=== PATIENT | female | born 1970 | race Caucasian/White ===

== ENCOUNTER 2020-07-16 10:36 | Outpatient (REF) | payer OTHER, SELFPAY ==
[2020-07-16 13:00] LABS: Alanine Aminotransferase 17 U/L (0-31); Albumin Level 4.3 g/dL (3.5-5.0); Alkaline Phosphatase 55 U/L (39-117); Anion Gap 11 (12-20); Aspartate Amino Transferase 19 U/L (5-31); Bilirubin Total 0.8 mg/dL (0.0-1.0); Blood Urea Nitrogen 14 mg/dL (9-16); Calcium 9.6 mg/dL (8.4-10.2); Carbon Dioxide 30 mmol/L (22-29); Chloride 103 mmol/L (96-108); Cholesterol 179 mg/dL; Estimated Glomerular Filt Rate > 60; Glucose Fasting 98 mg/dL (60-99); HDL Cholesterol 38 mg/dL; LDL Cholesterol Calculated 118 mg/dl; Potassium 4.2 mmol/L (3.3-5.1); Sodium 140 mmol/L (135-145); Total Protein 7.6 g/dL (6.5-8.0); Triglycerides 117 mg/dL
[2020-07-20 21:27] LABS: Vitamin D 25-OH, D2 <4 ng/mL; Vitamin D 25-OH, D3 10 ng/mL; Vitamin D 25-OH, Total 10 ng/mL (30-100)
== END 2020-07-16 10:37 | disposition home or self-care (01) ==
LOC: HO.LAB 10:36
PROVIDERS: PCP Internal Medicine; Visit Provider Internal Medicine
DX: E55.9 Vitamin D deficiency, unspecified (principal); E78.5 Hyperlipidemia, unspecified; I10 Essential (primary) hypertension
CPT/HCPCS: 36415; 80053; 80061; 82306

== ENCOUNTER 2021-11-18 08:18 | Outpatient (REF) | payer OTHER, SELFPAY ==
[2021-11-18 10:05] LABS: Alanine Aminotransferase 12 U/L (0-31); Albumin Level 3.9 g/dL (3.5-5.0); Alkaline Phosphatase 60 U/L (39-117); Anion Gap 11 (12-20); Aspartate Amino Transferase 15 U/L (5-31); Bilirubin Total 0.9 mg/dL (0.0-1.0); Blood Urea Nitrogen 12 mg/dL (9-16); Carbon Dioxide 27 mmol/L (22-29); Chloride 104 mmol/L (96-108); Cholesterol 182 mg/dL; Estimated Glomerular Filt Rate > 60; Glucose Fasting 99 mg/dL (60-99); HDL Cholesterol 45 mg/dL; LDL Cholesterol Calculated 118 mg/dl; Sodium 138 mmol/L (135-145); Total Protein 6.9 g/dL (6.5-8.0); Triglycerides 99 mg/dL
[2021-11-23 09:02] LABS: Vitamin D 25-OH, D2 40 ng/mL; Vitamin D 25-OH, D3 <4 ng/mL; Vitamin D 25-OH, Total 40 ng/mL (30-100)
== END 2021-11-18 08:19 | disposition home or self-care (01) ==
LOC: HO.LAB 08:18
PROVIDERS: PCP Internal Medicine; Visit Provider Internal Medicine
DX: I10 Essential (primary) hypertension (principal); E78.5 Hyperlipidemia, unspecified; E55.9 Vitamin D deficiency, unspecified
CPT/HCPCS: 36415; 80053; 80061; 82306

== ENCOUNTER 2023-01-18 07:23 | Outpatient (REF) | payer OTHER, SELFPAY ==
[2023-01-18 08:33] LABS: Alanine Aminotransferase 47 U/L (0-31); Albumin Level 3.8 g/dL (3.5-5.0); Alkaline Phosphatase 58 U/L (39-117); Anion Gap 9 (12-20); Aspartate Amino Transferase 29 U/L (5-31); Bilirubin Total 0.9 mg/dL (0.0-1.0); Blood Urea Nitrogen 14 mg/dL (9-16); Calcium 9.6 mg/dL (8.4-10.2); Carbon Dioxide 29 mmol/L (22-29); Chloride 105 mmol/L (96-108); Cholesterol 185 mg/dL (<200); Estimated Glomerular Filt Rate > 60; Glucose Fasting 99 mg/dL (60-99); HDL Cholesterol 54 mg/dL (>40); LDL Cholesterol Calculated 109 mg/dL (<100); Potassium 3.7 mmol/L (3.3-5.1); Sodium 139 mmol/L (135-145); Total Protein 7.1 g/dL (6.5-8.0); Triglycerides 114 mg/dL (<150)
[2023-01-18 08:50] LABS: Vitamin D 25-OH Total 28.1 ng/mL (>30)
== END 2023-01-18 07:24 | disposition home or self-care (01) ==
LOC: HO.LAB 07:23
PROVIDERS: PCP Internal Medicine; Visit Provider Internal Medicine
DX: Z00.00 Encounter for general adult medical examination without abnormal findings (principal); E55.9 Vitamin D deficiency, unspecified; E78.5 Hyperlipidemia, unspecified
CPT/HCPCS: 36415; 80053; 80061; 82306

== ENCOUNTER 2023-01-24 07:57 | Outpatient (AMB) | payer OTHER, SELFPAY ==
--- NOTE | 2023-01-24 08:05 | A.OFFPC_ITS ---
Vital Signs 01/24/23 08:06 Height 5 ft 5 in Weight 212 lb BMI 35.3 BP 148/92 H Blood Pressure Location Lt brachial Position Sitting Intake Visit Reasons: bp Intake Note: Patient here for a follow up BP Legal Assistant Required: No Accompanied by: Self / Same As Patient Allergies No Known Allergies Allergy (Verified 01/24/23 08:10) Medication List - Last Reconciled 01/24/23 by Desiree Maxwell MD cholecalciferol (vitamin D3) 25 mcg PO DAILY 90 days lisinopril 5 mg PO DAILY triamterene-hydrochlorothiazid 37.5-25 mg 1 tab PO DAILY 90 days Tobacco use date assessed: 09/19/22 Dental Screening Dental Screen Date: 01/24/23 Did you have a dental visit in the last 12 months?: Yes Did you have a dental problem in the last 6 months where you did not have access to dental care?: No Was dental information given to patient?: Patient has dentist HPI HPI Comments History of Present Illness Details This is a 52 year female with hypertension and low vitamin-D that comes today for follow-up on blood pressure. Blood pressure elevated and she is compliant with her medications. I will increase lisinopril from 5 mg to 10 mg. Blood pressure will be recheck in 3 weeks by nurse navigator. Vitamin-D is norm al on supplements. No chest pain or shortness of breath. [facility] Medical History Obesity (BMI 35.0-39.9 without comorbidity) Hypovitaminosis D Essential hypertension Surgical History History of arthroscopy of right knee H/O LEEP Family History Father Prostate cancer Mother Hypertension Stroke Lung cancer Family/Other FH: mental illness Maternal Grandfather Myocardial infarction Daughter In good health Daughter In good health Brother No problems noted. Brother No problems noted. Sister No problems noted. Sister No problems noted. Sister No problems noted. Social History Housing: House Alcohol intake: current Alcohol intake frequency: a few times a month Patient Tobacco Use Status: Former Tobacco user Tobacco use type: Cigarette e-Cigarette/Vaping Use: Never Used Second Hand Smoke Exposure: No service: No Current occupational status: unemployed Current occupational exposures/hazards: No Cognitive needs: No Hearing needs: No Vision needs: No Questionnaire Thrive Questionnaire Date Thrive assessed: 09/19/22 ALISE-7 AMB Questionnaire ALISE-7 Date ALISE - 7 assessed: 09/19/22 Source: Developed by Drs. Tate Peres, Susan Day, Franklyn Henry and colleagues, with an educational jose from [employer]. Review of Systems Const All systems reviewed & are unremarkable except as noted in HPI and below Eyes Reports no additional complaints, Denies change in vision and Denies other visual disturbances Card Denies chest pain at rest, Denies chest pain with activity, Denies edema, Denies irregular heart rhythm, Denies claudication, Denies dyspnea, Denies dyspnea on exertion, Denies orthopnea, Denies paroxysmal nocturnal dyspnea and Denies slow heart rate Resp Denies cough, Denies dyspnea and Denies dyspnea on exertion GI Denies abdominal pain, Denies change in bowel habits, Denies excessive flatus, Denies nausea and Denies vomiting Denies urinary incontinence, Denies urinary hesitancy and Denies urinary urgency Musc Denies abnormal gait, Denies atrophy, Denies deformity and Denies limited range of motion Skin/Breast Denies bleeding lesions, Denies changing lesions and Denies rash Neuro Denies abnormal gait and Denies lack of coordination Physical exam (Primary Care) Vital Signs: Last Vital Signs BP 148/92 H 01/24/23 08:06 BMI result Body Mass Index 35.3 Tobacco/Smoking Status: Tobacco use Status Tobacco use date assessed 09/19/22 09/19/22 08:44 Patient Tobacco Use Status Former Tobacco user 09/19/22 08:44 Tobacco use type Cigarette 09/19/22 08:44 e-Cigarette/Vaping Use Never Used 09/19/22 08:44 Thrive Assessment: Date of Thrive Assessment Date Thrive assessed 09/19/22 10/04/22 11:17 Eyes General: appearance normal, both eyes and all related structures Eyelids: Yes eyelids normal Conjunctivae: conjunctivae normal Neck Neck: Yes normal visual inspection and Yes supple Resp Effort & Inspection: normal respiratory effort Auscultation: clear to auscultation bilaterally Cardio Jugular venous distension: no JVD Rate: regular rate Rhythm: regular rhythm Heart sounds: S1 normal heart sound present and S2 normal heart sound present Extrem General: Yes full ROM Assessment and Plan Assessment & Plan (1) Essential hypertension: Code(s): I10 - Essential (primary) hypertension Plan: Continue triamterene-hydrochlorothiazide. Increase lisinopril from 5 mg to 10 mg. Blood pressure goal is equal or less than 130/80. Recheck blood pressure with nurse navigator in 3 weeks. (2) Hypovitaminosis D: Code(s): E55.9 - Vitamin D deficiency, unspecified Plan: Continue vitamin-D supplement. Orders: Referrals Cologuard Test Z12.11 - Encounter for screening for malignant neoplasm of colon, Z12.12 - Encounter for screening for malignant neoplasm of rectum Medications: New lisinopril 10 mg PO DAILY 90 days 90 tabs 3RF I10 - Essential (primary) hypertension Discontinued lisinopril Discontinued Reason: Patient Completed Course 5 mg PO DAILY 90 tabs 3RF Coding Level of Care Code Est Pt Level 3 (44819) Diagnoses Essential hypertension I10 Hypovitaminosis D E55.9 Time Spent (min) 19
[2023-01-24 08:06] VITALS: BP 148/92; BMI 35.3
== END 2023-01-24 08:17 | disposition home or self-care (01) ==
PROVIDERS: Visit Provider Internal Medicine
DX: I10 Essential (primary) hypertension (principal); E55.9 Vitamin D deficiency, unspecified
CPT/HCPCS: 99213

== ENCOUNTER 2023-10-10 07:53 | Outpatient (AMB) | payer OTHER, SELFPAY ==
--- NOTE | 2023-10-10 07:58 | A.OFFPC_ITS ---
Vital Signs 10/10/23 07:59 Height 5 ft 5 in Weight 208 lb BMI 34.6 BP 136/88 Blood Pressure Location Lt brachial Position Sitting Intake Visit Reasons: PE Intake Note: Patient here for a physical exam Parcel Carrier Required: No Accompanied by: Self / Same As Patient Allergies No Known Allergies Allergy (Verified 10/10/23 08:17) Medication List - Last Reconciled 10/10/23 by Desiree Maxwell MD cholecalciferol (vitamin D3) 25 mcg PO DAILY 90 days lisinopril 10 mg PO DAILY 90 days triamterene-hydrochlorothiazid 37.5-25 mg 1 tab PO DAILY 90 days Tobacco use date assessed: 10/10/23 Dental Screening Dental Screen Date: 10/10/23 Did you have a dental visit in the last 12 months?: Yes Did you have a dental problem in the last 6 months where you did not have access to dental care?: No Was dental information given to patient?: Patient has dentist HPI HPI Comments History of Present Illness Details This is a 53-year-old female that comes for her physical exam. Last mammogram was less than a year ago and was normal. Pap smear are up today and she follows with OBGYN. Last Cologuard was 2022 and was normal. She has obese with a BMI of 34.6 and has tried diet and exercise with no significant i mprovement. And she will benefit from wegovy. [facility] Medical History Obesity (BMI 35.0-39.9 without comorbidity) Hypovitaminosis D Essential hypertension Surgical History History of arthroscopy of right knee H/O LEEP Family History (Updated 10/10/23 @ 08:22 by Desiree Maxwell MD) Father Prostate cancer Mother Hypertension Stroke Lung cancer Myocardial infarct Family/Other FH: mental illness Maternal Grandfather Myocardial infarct Daughter In good health Daughter In good health Brother No problems noted. Brother No problems noted. Sister No problems noted. Sister No problems noted. Sister No problems noted. Social History (Updated 10/10/23 @ 08:22 by Desiree Maxwell MD) Housing: House Alcohol intake: current Alcohol intake frequency: a few times a week Alcohol type: beer and hard liquor Patient Tobacco Use Status: Former Tobacco user Tobacco use type: Cigarette e-Cigarette/Vaping Use: Never Used Second Hand Smoke Exposure: No service: No Current occupational status: unemployed Current occupational exposures/hazards: No Cognitive needs: No Hearing needs: No Vision needs: No Questionnaire PHQ-9 Over the last 2 weeks, how often have you been bothered by any of the following problems? 1. Little interest or pleasure in doing things: not at all 2. Feeling down, depressed, or hopeless: not at all 3. Trouble falling or staying asleep, or sleeping too much: not at all 4. Feeling tired or having little energy: not at all 5. Poor appetite or overeating: not at all 6. Feeling bad about yourself - or that you are a failure or have let yourself or your family down: not at all 7. Trouble concentrating on things, such as reading the newspaper or watching television: not at all 8. Moving or speaking so slowly that other people could have noticed. Or the opposite - being so fidgety or restless that you have been moving around a lot more than usual: not at all 9. Thoughts that you would be better off or of hurting yourself in some way: not at all Total score: 0 Depression Screening Interpretation: Negative Depression Screening Done: Yes Source: Developed by Drs. Tate Peres, Susan Day, Franklyn Henry and colleagues, with an educational jose from [employer] Thrive Questionnaire Date Thrive assessed: 10/10/23 I am a: Patient What is your living situation today?: I have a steady place to live Within the past 12 months, did the food you bought not last and you didn't have the money to get more?: Never true Within the past 12 months, did you worry whether your food would run out before you got money to buy more?: Never true Do you have trouble paying for medicines?: No Do you have trouble getting transportation to medical appointments?: No Do you have trouble paying your heating and electricity bill?: No Do you have trouble taking care of your child, family member or friend?: No Do you have trouble with day-to-day activities such as bathing, preparing meals, shopping, managing finances, etc.?: No Are you currently unemployed and looking for a job?: No Are you interested in more education?: No Please select the resources that you would like help with: None Currently or been in a relationship where the following occur: no concerns reported THRIVE Score: 0 AUDIT C Alcohol Use Questionnaire (AUDIT-C) 1. How often do you have a drink containing alcohol?: 2-4 times a month 2. How many drinks containing alcohol do you have on a typical day when you are drinking?: 1 or 2 3. How often do you have six or more drinks on one occasion?: Never Total Score: 2 Score Reviewed/Action Taken: No ALISE-7 AMB Questionnaire ALISE-7 Date ALISE - 7 assessed: 10/10/23 Feeling nervous, anxious, or on edge: 0 = Not at all Not being able to stop or control worryin = Not at all Worrying too much about different things: 0 = Not at all Trouble relaxin = Not at all Being so restless that it is hard to sit still: 0 = Not at all Becoming easily annoyed or irritable: 0 = Not at all Feeling afraid as if something awful might happen: 0 = Not at all Total ALISE-7 score (0-4 normal; 5-9 mild; 10-14 moderate; 15-21 severe): 0 Source: Developed by Drs. Tate Peres, Susan Day, Franklyn Henry and colleagues, with an educational jose from [employer] ALISE-7 Assessment Billing ALISE-7 Assessment Tool: ALISE-7 Assessment 53482 Review of Systems Const All systems reviewed & are unremarkable except as noted in HPI and below Card Denies chest pain at rest, Denies chest pain with activity, Denies edema, Denies irregular heart rhythm, Denies claudication, Denies dyspnea, Denies dyspnea on exertion, Denies orthopnea, Denies paroxysmal nocturnal dyspnea and Denies slow heart rate Resp Denies cough, Denies dyspnea and Denies dyspnea on exertion Musc Denies abnormal gait, Denies atrophy, Denies deformity and Denies limited range of motion Skin/Breast Denies bleeding lesions, Denies changing lesions and Denies rash Neuro Denies abnormal gait, Denies behavioral changes, Denies confusion and Denies lack of coordination Psych Denies behavioral changes and Denies confusion Physical exam (Primary Care) Vital Signs: Last Vital Signs BP 136/88 10/10/23 07:59 BMI result Body Mass Index 34.6 BMI Assessment/Plan discussion: High BMI High, discussed plan: lifestyle, weight reduction, dietary and physical activity Tobacco/Smoking Status: Tobacco use Status Tobacco use date assessed 10/10/23 10/10/23 08:04 Patient Tobacco Use Status Former Tobacco user 10/10/23 08:04 Tobacco use type Cigarette 10/10/23 08:04 e-Cigarette/Vaping Use Never Used 10/10/23 08:04 PHQ-9: PHQ-9 Score PHQ-9: Total score 0 10/10/23 08:04 Depression Screening Interpretation: Negative Thrive Assessment: Date of Thrive Assessment Date Thrive assessed 10/10/23 10/10/23 08:04 Currently or been in a relationship where the following occur: no concerns reported Const General: No confusion Orientation/consciousness: patient oriented x3 and No confusion HENMT Head: Yes normal to inspection, Yes normocephalic and Yes atraumatic Ears: external ears normal Eyes General: appearance normal, both eyes and all related structures Eyelids: Yes eyelids normal Conjunctivae: conjunctivae normal Neck Neck: Yes normal visual inspection and Yes supple Resp Effort & Inspection: normal respiratory effort Auscultation: clear to auscultation bilaterally Cardio Jugular venous distension: no JVD Rate: regular rate Rhythm: regular rhythm Heart sounds: S1 normal heart sound present and S2 normal heart sound present GI Inspection: Yes normal to inspection Palpation (GI): Soft to palpation and nontender Auscultation: normal bowel sounds Skin General skin exam: no rashes or lesions noted Neuro General: patient oriented x3, no focal motor deficits and No confusion Extrem General: Yes full ROM Psych Appearance: grossly normal Assessment and Plan Assessment & Plan (1) Physical exam: Code(s): Z00.00 - Encounter for general adult medical examination without abnormal findings Plan: Repeat in a year. Orders: Orders Lipid Panel Today E78.5 - Hyperlipidemia, unspecified, Z00.00 - Encounter for general adult medical examination without abnormal findings Comprehensive [place]. Panel Fast Today Z00.00 - Encounter for general adult medical examination without abnormal findings Vitamin D 25-OH Total Today E55.9 - Vitamin D deficiency, unspecified Medications: New semaglutide (weight loss) (Nabila) administer weeks 1 through 4 of therapy 0.25 mg (0.5 mL) subcut QWEEK 4 weeks 2 mL 0RF E66.9 - Obesity, unspecified Coding Level of Care Code Est Pt Prev Care 40-64y(59897) Diagnoses Physical exam Z00.00 Additional Codes ALISE-7 Assessment Billing - ALISE-7 Assessment Tool: ALISE-7 Assessment 73305 ([id number]) Time Spent (min) 33
[2023-10-10 07:59] VITALS: BP 136/88; BMI 34.6
== END 2023-10-10 08:34 | disposition home or self-care (01) ==
PROVIDERS: PCP Internal Medicine; Visit Provider Internal Medicine
DX: Z00.00 Encounter for general adult medical examination without abnormal findings (principal)
CPT/HCPCS: 99396

== ENCOUNTER 2023-10-26 07:52 | Outpatient (REF) | payer OTHER, SELFPAY ==
[2023-10-26 09:54] LABS: Alanine Aminotransferase 18 U/L (0-31); Alkaline Phosphatase 61 U/L (39-117); Anion Gap 14 (12-20); Aspartate Amino Transferase 20 U/L (5-31); Bilirubin Total 0.8 mg/dL (0.0-1.0); Blood Urea Nitrogen 14 mg/dL (9-16); Calcium 9.1 mg/dL (8.4-10.2); Carbon Dioxide 28 mmol/L (22-29); Chloride 102 mmol/L (96-108); Cholesterol 164 mg/dL (<200); Estimated Glomerular Filt Rate > 60; Glucose Fasting 90 mg/dL (60-99); HDL Cholesterol 44 mg/dL (>40); LDL Cholesterol Calculated 104 mg/dL (<100); Potassium 3.7 mmol/L (3.3-5.1); Sodium 140 mmol/L (135-145); Total Protein 7.5 g/dL (6.5-8.0); Triglycerides 84 mg/dL (<150)
== END 2023-10-26 07:53 | disposition home or self-care (01) ==
LOC: HO.LAB 07:52
PROVIDERS: PCP Internal Medicine; Visit Provider Internal Medicine
DX: Z00.00 Encounter for general adult medical examination without abnormal findings (principal); E78.5 Hyperlipidemia, unspecified; E55.9 Vitamin D deficiency, unspecified
CPT/HCPCS: 36415; 80053; 80061; 82306

== ENCOUNTER 2024-04-14 08:08 | Outpatient (AMB) | payer OTHER, SELFPAY ==
[2024-04-14 08:22] VITALS: BP 130/80; BMI 30.3
--- NOTE | 2024-04-14 08:22 | A.OFFPC_ITS ---
Vital Signs 04/14/24 08:22 Height 5 ft 5 in Weight 182 lb BMI 30.3 BP 130/80 Blood Pressure Location Lt brachial Position Sitting Intake Visit Reasons: bp Intake Note: Patient here for a follow up BP Lead Quality Technician Required: No Accompanied by: Self / Same As Patient Allergies No Known Allergies Allergy (Verified 04/14/24 08:33) Medication List - Last Reconciled 04/14/24 by Desiree Maxwell MD cholecalciferol (vitamin D3) 25 mcg PO DAILY 90 days lisinopril 10 mg PO DAILY 90 days semaglutide (weight loss) (Wegovy) 0.25 mg (0.5 mL) subcut QWEEK 4 weeks triamterene-hydrochlorothiazid 37.5-25 mg 1 tab PO DAILY 90 days Tobacco use date assessed: 10/10/23 Dental Screening Dental Screen Date: 10/10/23 HPI HPI Comments History of Present Illness Details The patient is a 53-year-old female presenting with a follow-up for blood pressure management. Essential Hypertension was previously diagnosed, and the patient is currently on Lisinopril 10 mg and a combination of triamterene and hydrochlorothiazide. The patient's blood pressure today is recorded at 130/80 mmHg, indicating the medications are effective. In addition, the patient has a history of obesity, with a body mass index (BMI) of 34.6 in September at a weight of 208 lbs. Recently, she reported a weight drop to 182 lbs and a BMI of 30.3. This weight loss was achieved by modifying her diet and using semaglutide, which was not covered by insurance and was obtained through a clinic. The pa alexandra had been on a plateau since December despite maintaining her mindset and increasing her physical activity. [facility] Medical History (Updated 10/10/23 @ 08:29 by Desiree Maxwell MD) Obesity (BMI 35.0-39.9 without comorbidity) Hypovitaminosis D Essential hypertension Surgical History History of arthroscopy of right knee H/O LEEP Family History Father Prostate cancer Mother Hypertension Stroke Lung cancer Myocardial infarct Family/Other FH: mental illness Maternal Grandfather Myocardial infarct Daughter In good health Daughter In good health Brother No problems noted. Brother No problems noted. Sister No problems noted. Sister No problems noted. Sister No problems noted. Social History Housing: House Alcohol intake: current Alcohol intake frequency: a few times a week Alcohol type: beer and hard liquor Patient Tobacco Use Status: Former Tobacco user Tobacco use type: Cigarette e-Cigarette/Vaping Use: Never Used Second Hand Smoke Exposure: No service: No Current occupational status: unemployed Current occupational exposures/hazards: No Cognitive needs: No Hearing needs: No Vision needs: No Questionnaire Thrive Questionnaire Date Thrive assessed: 10/10/23 AUDIT C Alcohol Use Questionnaire (AUDIT-C) 2. How many drinks containing alcohol do you have on a typical day when you are drinking?: 3 or 4 3. How often do you have six or more drinks on one occasion?: Monthly Total Score: 3 ALISE-7 AMB Questionnaire ALISE-7 Date ALISE - 7 assessed: 10/10/23 Source: Developed by Drs. Tate Peres, Susan Day, Franklyn Henry and colleagues, with an educational jose from [employer]. Review of Systems Const Details: - Cardiovascular: Reports no current concerns; blood pressure is managed. Physical exam (Primary Care) Vital Signs: Last Vital Signs BP 130/80 04/14/24 08:22 BMI result Body Mass Index 30.3 BMI Assessment/Plan discussion: High BMI High, discussed plan: lifestyle, weight reduction, dietary and physical activity Tobacco/Smoking Status: Tobacco use Status Tobacco use date assessed 10/10/23 04/14/24 08:27 Patient Tobacco Use Status Former Tobacco user 04/14/24 08:27 Tobacco use type Cigarette 04/14/24 08:27 e-Cigarette/Vaping Use Never Used 04/14/24 08:27 Thrive Assessment: Date of Thrive Assessment Date Thrive assessed 10/10/23 04/14/24 08:27 Const Other: General: No confusion Respiratory: Normal respiratory effort, clear to auscultation bilaterally Cardiovascular: No jugular venous distension, regular rate, regular rhythm, S1 normal heart sound present and S2 normal heart sound present Extremities: Full ROM Office Procedures Flu Questionnaire Does the patient have a severe egg allergy?: No Does the patient have severe life threatening allergies?: No Does the patient have a fever or illness today?: No Has the patient ever had Guillain-[place] Syndrome?: No Has the patient ever had any past reaction to a flu shot?: No Immunizations Fluarix Triv [id number] (PF) 45 mcg (15 mcg x 3)/0.5 mL IM syringe Performing Provider: Desiree Maxwell MD [facility] Administered by: MEJIA Barlow on 04/14/24 08:46 Dose Route Admin Location Dispensed Lot Number Expiration Date NDC Community Service Officer Coordinator 0.5 mL IM Left Deltoid 0.5 mL [id number] 10/26/24 [id number] EpicPledge VIS Given Date VIS Provided VIS Publication Date 04/14/24 Single Vaccine 20 Eligibility Eligibility Date Funding Source Not [facility] Eligible 04/14/24 Private Coding Level of Care Code Est Pt Level 3 (67790) Complex EM visit Add On G2211 Diagnoses Essential hypertension I10 Obesity (BMI 30.0-34.9) E66.9 Time Spent (min) 19 Assessment & Plan Assessment & Plan (1) Essential hypertension: Code(s): I10 - Essential (primary) hypertension Category: Medical (2) Obesity (BMI 30.0-34.9): Code(s): E66.9 - Obesity, unspecified Category: Medical Plan - Continue current antihypertensive regimen with Lisinopril 10 mg and triamterene/hydrochlorothiazide combination therapy for Essential Hypertension as current regimen is effective. - Acknowledge the weight loss efforts and encourage continuation of lifestyle modifications. Discuss the financial implications of semaglutide and suggest exploring insurance options or alternative strategies. - Schedule blood work for the next physical exam in September for ongoing health monitoring. - Administer influenza vaccine as requested. Patient was informed and verbally consented to the use of an ambient scribe for clinic note documentation during this visit. I discussed with the patient that her current antihypertensive regimen is effectively managing her blood pressure. We reviewed her weight loss journey, noting the positive impacts of diet change and semaglutide use. We acknowledged her plateau in weight loss and encouraged continuing her current lifestyle ad justments. The patient was informed about the plan to perform blood work during her next physical examination and that the flu vaccination would be administered today. Orders: Orders Influenza [id number] Immunization Today Z23 - Encounter for immunization Vitamin D 25-OH Total 6 Months E55.9 - Vitamin D deficiency, unspecified Comprehensive [place]. Panel Fast 6 Months I10 - Essential (primary) hypertension Lipid Panel 6 Months E78.5 - Hyperlipidemia, unspecified Medications: Discontinued semaglutide (weight loss) (Nabila) administer weeks 1 through 4 of therapy Discontinued Reason: Patient Completed Course 0.25 mg (0.5 mL) subcut QWEEK 4 weeks 2 mL 0RF E66.9 - Obesity, unspecified Patient Instructions: - Continue taking prescribed blood pressure medications as directed. - Maintain current lifestyle and dietary modifications to support weight management. - Attend scheduled blood work during the next physical examination in September. - Receive the flu shot today to ensure up-to-date vaccinations. - Consider discussing insurance coverage options for semaglutide or exploring other weight loss alternatives.
== END 2024-04-14 08:48 | disposition home or self-care (01) ==
PROVIDERS: PCP Internal Medicine; Visit Provider Internal Medicine
DX: I10 Essential (primary) hypertension (principal); E66.9 Obesity, unspecified; Z68.30 Body mass index [BMI] 30.0-30.9, adult; Z23 Encounter for immunization

== ENCOUNTER → 2024-04-14 08:08 | Outpatient (BNVA) | payer OTHER, SELFPAY | PROVIDERS: PCP Internal Medicine; Visit Provider Internal Medicine | DX: I10 Essential (primary) hypertension (principal); E66.9 Obesity, unspecified; Z68.30 Body mass index [BMI] 30.0-30.9, adult; Z79.899 Other long term (current) drug therapy; Z23 Encounter for immunization | CPT/HCPCS: 90471; 90656 ==

== ENCOUNTER 2024-10-10 07:35 | Outpatient (REF) | payer OTHER, SELFPAY ==
[2024-10-10 08:44] LABS: Alanine Aminotransferase 28 U/L (0-31); Albumin Level 4.3 g/dL (3.5-5.0); Alkaline Phosphatase 57 U/L (39-117); Anion Gap 11 (12-20); Aspartate Amino Transferase 26 U/L (5-31); Blood Urea Nitrogen 20 mg/dL (9-16); Calcium 9.6 mg/dL (8.4-10.2); Carbon Dioxide 29 mmol/L (22-29); Chloride 106 mmol/L (96-108); Cholesterol 211 mg/dL (<200); Estimated Glomerular Filt Rate > 60; Glucose Fasting 100 mg/dL (60-99); HDL Cholesterol 61 mg/dL (>40); LDL Cholesterol Calculated 136 mg/dL (<100); Potassium 4.3 mmol/L (3.3-5.1); Sodium 142 mmol/L (135-145); Total Protein 7.2 g/dL (6.5-8.0); Triglycerides 74 mg/dL (<150)
[2024-10-10 09:00] LABS: Vitamin D 25-OH Total 39.4 ng/mL (>30)
== END 2024-10-10 07:36 | disposition home or self-care (01) ==
LOC: HO.LAB 07:35
PROVIDERS: PCP Internal Medicine; Visit Provider Internal Medicine
DX: E55.9 Vitamin D deficiency, unspecified (principal); E78.5 Hyperlipidemia, unspecified; I10 Essential (primary) hypertension
CPT/HCPCS: 36415; 80053; 80061; 82306

== ENCOUNTER 2024-10-14 08:25 | Outpatient (AMB) | payer OTHER, SELFPAY ==
--- NOTE | 2024-10-14 08:45 | A.OFFPC_ITS ---
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 Accompanied by: Self / Same As Patient Allergies No Known Allergies Allergy (Verified 10/14/24 09:01) Medication List - Last Reconciled 10/14/24 by Desiree Maxwell MD cholecalciferol (vitamin D3) 25 mcg PO DAILY 90 days lisinopril 10 mg PO DAILY 90 days triamterene-hydrochlorothiazid 37.5-25 mg 1 tab PO DAILY 90 days Tobacco use date assessed: 10/14/24 Dental Screening Dental Screen Date: 10/14/24 Did you have a dental visit in the last 12 months?: Yes Did you have a dental problem in the last 6 months where you did not have access to dental care?: No Was dental information given to patient?: Patient has dentist HPI HPI Comments History of Present Illness Details This is a 54-year-old female with hypertension, hypovitaminosis D and pure hypercholesterolemia that comes for her physical exam. Blood pressure stable with medications. Vitamin-D normal with supplements. Cholesterol elevated but her [place] risk score is 1.4% of having a heart attack or stroke in the next 10 years therefore no need for medication. Mammogram done March 2024 was negative. Cologuard done 2022 was negative and next Cologuard should be 2025. Pap smear done last year and was normal. She complains of bilateral ear itching and I will send eardrops. Also has multiple allergies and I will start her on antihistamines as needed. Also has a lipoma on the back eloy t has been evaluated years ago but now is growing in size and I will refer her to surgery. [facility] Medical History (Updated 10/14/24 @ 09:18 by Desiree Maxwell MD) Obesity (BMI 35.0-39.9 without comorbidity) Hypovitaminosis D Essential hypertension Surgical History History of arthroscopy of right knee H/O LEEP Family History Father Prostate cancer Mother Hypertension Stroke Lung cancer Myocardial infarct Family/Other FH: mental illness Maternal Grandfather Myocardial infarct Daughter In good health Daughter In good health Brother No problems noted. Brother No problems noted. Sister No problems noted. Sister No problems noted. Sister No problems noted. Social History Housing: House Alcohol intake: current Alcohol intake frequency: a few times a week Alcohol type: beer and hard liquor Patient Tobacco Use Status: Former Tobacco user Tobacco use type: Cigarette e-Cigarette/Vaping Use: Never Used Second Hand Smoke Exposure: No service: No Current occupational status: unemployed Current occupational exposures/hazards: No Cognitive needs: No Hearing needs: No Vision needs: No Questionnaire PHQ-9 Over the last 2 weeks, how often have you been bothered by any of the following problems? 1. Little interest or pleasure in doing things: not at all 2. Feeling down, depressed, or hopeless: not at all 3. Trouble falling or staying asleep, or sleeping too much: not at all 4. Feeling tired or having little energy: not at all 5. Poor appetite or overeating: not at all 6. Feeling bad about yourself - or that you are a failure or have let yourself or your family down: not at all 7. Trouble concentrating on things, such as reading the newspaper or watching television: not at all 8. Moving or speaking so slowly that other people could have noticed. Or the opposite - being so fidgety or restless that you have been moving around a lot more than usual: not at all 9. Thoughts that you would be better off or of hurting yourself in some way: not at all Total score: 0 Depression Screening Interpretation: Negative Depression Screening Done: Yes 26148 - PHQ-9 Billing: Yes Source: Developed by Drs. Tate Peres, Susan Day, Franklyn Henry and colleagues, with an educational jose from [employer]. Thrive Questionnaire Date Thrive assessed: 10/07/24 I am a: Patient What is your living situation today?: I have a steady place to live Within the past 12 months, did the food you bought not last and you didn't have the money to get more?: Never true Within the past 12 months, did you worry whether your food would run out before you got money to buy more?: Never true Do you have trouble paying for medicines?: No Do you have trouble getting transportation to medical appointments?: No Do you have trouble paying your heating and electricity bill?: No Do you have trouble taking care of your child, family member or friend?: No Do you have trouble with day-to-day activities such as bathing, preparing meals, shopping, managing finances, etc.?: No Are you currently unemployed and looking for a job?: No Are you interested in more education?: No Please select the resources that you would like help with: None Currently or been in a relationship where the following occur: No concerns reported THRIVE Score: 0 AUDIT C Alcohol Use Questionnaire (AUDIT-C) 1. How often do you have a drink containing alcohol?: 2-3 times a week 2. How many drinks containing alcohol do you have on a typical day when you are drinking?: 3 or 4 3. How often do you have six or more drinks on one occasion?: Less than monthly Total Score: 5 ALISE-7 AMB Questionnaire ALISE-7 Date ALISE - 7 assessed: 10/14/24 Feeling nervous, anxious, or on edge: 0 = Not at all Not being able to stop or control worryin = Not at all Worrying too much about different things: 0 = Not at all Trouble relaxin = Not at all Being so restless that it is hard to sit still: 0 = Not at all Becoming easily annoyed or irritable: 0 = Not at all Feeling afraid as if something awful might happen: 0 = Not at all Total ALISE-7 score (0-4 normal; 5-9 mild; 10-14 moderate; 15-21 severe): 0 Source: Developed by Drs. Tate Peres, Susan Day, Franklyn Henry and colleagues, with an educational jose from [employer]. ALISE-7 Assessment Billing ALISE-7 Assessment Tool: ALISE-7 Assessment 50112 Review of Systems Const All systems reviewed & are unremarkable except as noted in HPI and below Card Denies chest pain at rest, Denies chest pain with activity, Denies edema, Denies irregular heart rhythm, Denies claudication, Denies dyspnea, Denies dyspnea on exertion, Denies orthopnea, Denies paroxysmal nocturnal dyspnea and Denies slow heart rate Resp Denies cough, Denies dyspnea and Denies dyspnea on exertion GI Denies abdominal pain, Denies change in bowel habits, Denies excessive flatus, Denies nausea and Denies vomiting Neuro Denies behavioral changes and Denies lack of coordination Psych Denies behavioral changes Physical exam (Primary Care) Vital Signs: Last Vital Signs BP 128/84 10/14/24 08:46 BMI result Body Mass Index 30.6 Tobacco/Smoking Status: Tobacco use Status Tobacco use date assessed 10/14/24 10/14/24 08:53 Patient Tobacco Use Status Former Tobacco user 10/14/24 08:50 Tobacco use type Cigarette 10/14/24 08:50 e-Cigarette/Vaping Use Never Used 10/14/24 08:50 PHQ-9: PHQ-9 Score PHQ-9: Total score 0 10/14/24 09:03 Depression Screening Interpretation: Negative Thrive Assessment: Date of Thrive Assessment Date Thrive assessed 10/07/24 10/14/24 08:50 Currently or been in a relationship where the following occur: No concerns [facility] Head: Yes normal to inspection, Yes normocephalic and Yes atraumatic Ears: external ears normal Eyes General: appearance normal, both eyes and all related structures Eyelids: Yes eyelids normal Conjunctivae: conjunctivae normal Neck Neck: Yes normal visual inspection and Yes supple Resp Effort & Inspection: normal respiratory effort Auscultation: clear to auscultation bilaterally Cardio Jugular venous distension: no JVD Rate: regular rate Rhythm: regular rhythm Heart sounds: S1 normal heart sound present and S2 normal heart sound present GI Inspection: Yes normal to inspection Palpation (GI): Soft to palpation and nontender Auscultation: normal bowel sounds Skin General skin exam: no rashes or lesions noted Neuro General: no focal motor deficits Extrem General: Yes full ROM Psych Appearance: grossly normal Immunizations Boostrix Tdap 2.5 Lf unit-8 mcg-5 Lf/0.5 mL intramuscular syringe Performing Provider: Desiree Maxwell MD Performing Location: [facility] Administered by: MEJIA Barlow on 10/14/24 09:18 Dose Route Admin Location Dispensed Lot Number Expiration Date [facility] Veneer Stock Layer 0.5 mL IM Left Deltoid 0.5 mL [id number] 12/25/26 [id number] [employer] Total Dispensed Waste 0.5 mL 0 % VIS Given Date VIS Provided VIS Publication Date 10/14/24 Single Vaccine 24 Eligibility Eligibility Date Funding Source Not [facility] Eligible 10/14/24 Private Coding Level of Care Code Est Pt Level 3 (15059) Est Pt Prev Care 40-64y(53770) Diagnoses Physical exam Z00.00 Ear itch L29.9 Lipoma D17.9 Seasonal allergic rhinitis J30.2 Additional Codes PHQ-9 - 57342 - PHQ-9 Billing: Yes ([id number]) ALISE-7 Assessment Billing - ALISE-7 Assessment Tool: ALISE-7 Assessment 25528 ([id number]) Time Spent (min) 34 Assessment & Plan Assessment & Plan (1) Physical exam: Code(s): Z00.00 - Encounter for general adult medical examination without abnormal findings Category: Medical (2) Ear itch: Code(s): L29.9 - Pruritus, unspecified Category: Medical (3) Lipoma: Code(s): D17.9 - Benign lipomatous neoplasm, unspecified Category: Medical (4) Seasonal allergic rhinitis: Code(s): J30.2 - Other seasonal allergic rhinitis Category: Medical Plan Repeat physical exam in a year. Continue current medications. Plan Cologuard for 2025. Tdap done today. Do mammogram 2024. Start levocetirizine for allergies. Start Dermotic for ear itching. Referred to surgery for lipoma. Orders: Orders Lipid Panel 365 Days E78.5 - Hyperlipidemia, unspecified, I10 - Essential (primary) hypertension TDaP Immunization Today Z23 - Encounter for immunization Vitamin D 25-OH Total 365 Days E55.9 - Vitamin D deficiency, unspecified Comprehensive [place]. Panel Fast 365 Days I10 - Essential (primary) hypertension Referrals General Surgery Referral D17.9 - Benign lipomatous neoplasm, unspecified Medications: New fluocinolone acetonide oil 0.01% (DermOtic Oil) 5 drps otic (ears) BID 20 mL 0RF 7 days L29.9 - Pruritus, unspecified levocetirizine 5 mg PO DAILY PRN 90 tabs 1RF allergy symptoms 90 days J30.2 - Other seasonal allergic rhinitis
[2024-10-14 08:46] VITALS: BP 128/84; BMI 30.6
== END 2024-10-14 09:16 | disposition home or self-care (01) ==
LOC: HO.HMCH 08:26
PROVIDERS: PCP Internal Medicine; Visit Provider Internal Medicine
DX: Z00.00 Encounter for general adult medical examination without abnormal findings (principal); L29.9 Pruritus, unspecified; D17.9 Benign lipomatous neoplasm, unspecified; J30.2 Other seasonal allergic rhinitis; Z23 Encounter for immunization

== ENCOUNTER → 2024-10-14 08:25 | Outpatient (BNVA) | payer OTHER, SELFPAY | PROVIDERS: PCP Internal Medicine; Visit Provider Internal Medicine | DX: Z00.00 Encounter for general adult medical examination without abnormal findings (principal); I10 Essential (primary) hypertension; E78.00 Pure hypercholesterolemia, unspecified; E55.9 Vitamin D deficiency, unspecified; L29.9 Pruritus, unspecified; D17.9 Benign lipomatous neoplasm, unspecified; J30.2 Other seasonal allergic rhinitis; Z23 Encounter for immunization | CPT/HCPCS: 90471; 90715; 96127 ==

== ENCOUNTER 2024-11-13 09:58 | Outpatient (AMB) | payer OTHER, SELFPAY ==
--- OUTSIDE RECORDS SUMMARY | 2024-11-05 07:00 | XMS_ITS | Continuity of Care Document ---
Author Organization [facility] Address [address] [place] [address] [address] [place] [address] Phone Care Team Providers Care Making Machine Operator Name Role Phone Josiah WILLOUGHBY, BALJINDER, Tate PAYNE Unavailable U navailable Procedures Procedure Date Office/Outpt E&M Established 10 Mins- Te lemedicine CT & [place] Office/Oupt E&M New Pt 45 Mins- CT & [place] Surgical Stockings CVR Reveal Thigh High Duplex Scan-extrem Veins; Uni/ CT & [place] M Advance Directives Directive Yes / No Effective Date File Name No Information Encounters Encounter Description Practice Location Reason(s) For Visit Diagnoses Date Provider Providers Copied on Encounter Office/Outpt E&M Established 10 Mins- Telemedicine [place] & [place] [facility], [address] [place] [address] [address], [id number], [place] tel:[phone] CVR - [place] Chronic venous hypertension (idiopathic) without complications of right lower extremityEssen tial (primary) hypertensionPr uritus, unspecified Josiah WILLOUGHBY, BALJINDER, ELMER Ybarra. [address] [facility], [address], [place], [place], [id number] , [place]. tel:[phone] Office/Oupt E&M New Pt 45 Mins- [place] & [place] [facility], [address] [place] [address] [address], [place], [id number], tel:[phone] CVR - [place] Varicose veins of right lower extremity with other complicationsP ain in right lower legPain in right legLocalized edemaRestless legs syndromeEssent ial (primary) hypertensionPr uritus, unspecifiedCra mp and spasm 5 Josiah WILLOUGHBY RVT, ELMER Ybarra. [address] [place] [address], [place], [id number] , [place]. tel:[phone] [facility], [address] [facility] [address], [place], [id number], tel:[phone] CVR - [place] Varicose veins of right lower extremity with pain 5 Josiah WILLOUGHBY RVT, ELMER Tate. [address] [place] [address], [place], [id number] , [place]. tel:[phone] Referring Provider: Tate Rahman MD, BALJINDER, ELMER, [address] [place] [address], [place], [address] . tel:[phone] Family History Family Member Type Diagnosis Age At Onset No Information Payers Payer name Insurance type Covered green party ID [facility]orkatrinaa veto[facility]s) [facility] [id number] Social History Type Description Quantity Date Captured Comments Alcohol Use Details Unknown Caffeine Use Details Unknown Tobacco Use Status No Information Smoking Status Former Smoker Non-Smoking Tobacco Use Details : No Details Available : No Details Available Sex Female Vital Signs Date / Time: Height Weight BMI Pulse Rate Blood Pressure Temperature Respiratory Rate Body Surface Area Head Circumference Head Circ. Percentile Wt./Martin. Percentile BMI percentile Pulse Ox Inhaled Ox 82.550 kg (182.00 lbs) 30.3 6 kg/m eter (2) 140/84 mm[Hg] Chief Complaint And Reason For Visit No Information Reason For Referral Reason For Referral No Information Plan Of Treatment Date Type Action Status Goal Tobacco cessation counseling completed Goal Diet education completed Goal Tobacco cessation counseling completed Referral Ordered: Weight management: Referral to physician timeframe: 3 Months (related to Body mass index (BMI) 30.0-30.9, adult) ordered Appointment Bonita Louise BOOKED Appointment Bonita Louise BOOKED Appointment Bonita Louise BOOKED Appointment Bonita Louise BOOKED Appointment Bonita Louise BOOKED Appointment Bonita Louise BOOKED Appointment Bonita Louise BOOKED Appointment Bonita Louise BOOKED History Of Present Illness Encounter Date Complaint History Of Prese nt Illness No Information Functional Status Date Functional Assessmen t No Information Instructions Date Instruction Additional Infor mation Patient education booklet given Related to Chronic venous hypertension (idiopathic) without complications of right lower extremity Pre and post instruc tions reviewed and provided Related to Chronic venous hypertension (idiopathic) without complications of right lower extremity Patient education booklet given Related to Varicose veins of right lower extremity with other complications Pre and post instruc tions reviewed and provided Related to Varicose veins of right lower extremity with other complications Diet education Related to Body mass index (BMI) 30.0-30.9, adult Giving Encouragement to exercise Related to Body mass index (BMI) 30.0-30.9, adult Lifestyle education Related to B lulu mass index (BMI) 30.0-30.9, adult Assessments Type Assessment Date No Information Patient Care Teams Name Effective Dates (start - stop) Status Members No Information
--- NOTE | 2024-11-13 10:06 | A.OFFVIS_ITS ---
Vital Signs 3 11/13/24 10:10 Height 5 ft 5 in Weight 180 lb BMI 30.0 BP 179/95 H Blood Pressure Location Lt brachial Position Sitting Pulse 73 Intake Visit Reasons: Benign lipomatous neoplasm Intake Note: Patient is seen in office for evaluation and treatment of a lipoma of the back. 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 She feels that this was initially 1st noted approximately 5-6 years ago. When 1st palpated it measured the size of a half-dollar but now has grown significantly since then. She was seen previously by surgery in the decision made to hold off on any surgical procedure unless the lesion continues to increase in size. She is now requesting excision of this lesion. She denies any significant pain, redness or discharge. She has had no previous trauma or surgery in this location. [facility] Medical History Obesity (BMI 35.0-39.9 without comorbidity) Hypovitaminosis D Essential hypertension Surgical History History of arthroscopy of right knee H/O LEEP Family History Father Prostate cancer Mother Hypertension Stroke Lung cancer Myocardial infarct Family/Other FH: mental illness Maternal Grandfather Myocardial infarct Daughter In good health Daughter In good health Brother No problems noted. Brother No problems noted. Sister No problems noted. Sister No problems noted. Sister No problems noted. Social History Housing: House Alcohol intake: current Alcohol intake frequency: a few times a week Alcohol type: beer and hard liquor Patient Tobacco Use Status: Former Tobacco user Tobacco use type: Cigarette e-Cigarette/Vaping Use: Never Used Second Hand Smoke Exposure: No service: No Current occupational status: unemployed Current occupational exposures/hazards: No Cognitive needs: No Hearing needs: No Vision needs: No Review of Systems Const All systems reviewed & are unremarkable except as noted in HPI and below Physical Exam Const General: cooperative and no acute distress Nutritional Appearance: well nourished Orientation/consciousness: patient oriented x3 Limitations: no limitations HEENT Head: Yes normocephalic and Yes atraumatic Ears: hearing grossly normal bilaterally Resp Effort & Inspection: normal respiratory effort, no audible wheezes, no cough and no respiratory distress Cardio Jugular venous distension: no JVD GI Inspection: Yes normal to inspection Back/Spine/Pelvis Back/spine/pelvis image: 2 1. 6 cm soft tissue mass medial to the scapula, mobile within the subcutaneous tissue most consistent with a lipoma Skin Other: Warm, dry, no rash Neuro General: patient oriented x3 Extrem General: Yes no clubbing, cyanosis or edema Assessment & Plan Assessment & Plan (1) Lipoma: Code(s): D17.9 - Benign lipomatous neoplasm, unspecified Category: Medical Qualifiers: Lipoma location: trunk Qualified Code(s): D17.1 - Benign lipomatous neoplasm of skin and subcutaneous tissue of trunk Plan 54-year-old female patient presenting with a soft tissue mass consistent with a lipoma in the left upper back which has gradually increased in size over the past 5 years. On examination she has a 6 cm soft tissue mass consistent with a lipoma in the right upper back medial to the scapula. I recommended an excision under local anesthesia as a minor surgery and after discussion of the procedure, risks, and alternatives, she consents to the excision of right upper back lipoma. Coding Level of Care Code New Pt Level 4 (36408) Diagnoses Lipoma of torso D17.1 Lipoma location: trunk
[2024-11-13 10:10] VITALS: BP 179/95; PULSE 73
--- OUTSIDE RECORDS SUMMARY | 2024-11-13 10:18 | XMS_ITS | Clinical Summary ---
Author Organization [facility] Address [address] [place] [address] Phone Care Team Providers Care Freight Team Associate Name Role Phone Desiree Maxwell MD Primary Care Provider [phone] Allergies No known active allergies Medications levonorgestreL (MIRENA) 21 mcg/24 hr (8 yrs) 52 mg IUD 1 Each by Intrauterine route once. Active triamterene-hyd roCHLOROthiazid e (DYAZIDE) 37.5-25 mg per capsule Take 1 capsule by mouth 1 (one) time each day in the morning. Active lisinopriL (PRINIVIL,ZESTR IL) 10 mg tablet Take 1 tablet (10 mg total) by mouth 1 (one) time each day. for 90 days 4 Active Vitamin D3 25 mcg (1,000 unit) capsule Take 1 capsule (1,000 Units total) by mouth 1 (one) time each day. 4 Active Active Problems Problem Noted Date Diagnosed Date Amenorrhea 03/07/2022 Overview (02/03/2024): Last Assessment & Plan: Patient amenorrheic with IUD in place. FSH/estradiol ordered to assess menopausal status. If labs demonstrate patient is menopausal she may return for IUD removal. Elevated blood pressure reading 03/07/2022 Overview (02/03/2024): Last Assessment & Plan: Patient instructed to follow-up with PCP Hypertension 07/23/2011 Surgical History Surgery Date Site/Laterality Comments CERVICAL BIOPSY W/ LOOP ELECTRODE EXCISION PROCEDURE: UT CONIZATION CERVIX W/WO D&C RPR ELTRD EXC; COMMENT: historical KNEE ARTHROSCOPY Right PROCEDURE: UT ARTHROSCOPY AID TX SPINE&/FX KNEE W/O FIXJ Medical History Medical History Date Comments Hypertension DX:Hypertension IUD (intrauterine device) in place 2017 DX:IUD (intrauterine device) in place; COMMENT: Mirena Heel spur 2015 DX:Heel spur Family History Medical History Relation Name Comments Prostate cancer Father doing well Lung cancer Mother Stroke Mother mild Breast cancer Neg Hx Colon cancer Neg Hx Ovarian cancer Neg Hx Uterine cancer Neg Hx Relation Name Status Comments Father Mother Social History Tobacco Use Types Packs/Day Years Used Date Smoking Tobacco: Former Smokeless Tobacco: Never Tobacco Cessation:Counseling Given: Not Answered Alcohol Use Standard Drinks/Week Comments Yes 0 (1 standard drink = 0.6 oz pur e alcohol) Housing Instability Answer Date Recorde d Are you worried that in the next 2 months you may not have stable housing? No 03/20/2024 Food Access & Nutrition Answer Date Rec orded Do you have access to a vari ety of food including fruits and vegetables? Yes 03/20/2024 Access to Healthcare Answer Date Record ed Within the last 3 months, ho w many times did you visit the emergency department for your medical care? 0 03/20/2024 Health Literacy Answer Date Recorded How often do you need to hav e someone help you when you read instructions, pamphlets, or other written material from your doctor or pharmacy? Never 03/20/2024 Caregiver: How often do you need to have someone help you when you read instructions, pamphlets, or other written material from your doctor or pharmacy? Not on file 03/20/2024 Financial Risk Answer Date Recorded How hard is it for you to pa y for the very basics like food, housing, medical care, and air conditioning / heating? Not very hard 03/20/2024 Transportation Answer Date Recorded Has the lack of transportati on kept you from meetings, work, or from getting things needed for daily living? No Has the lack of transportati on kept you from medical appointments or from getting medications? No 03/20/2024 Social Isolation Answer Date Recorded How often do you feel lonely or isolated from th ose around you? Never 03/20/2024 Food Risk Answer Date Recorded Within the past 12 months we worried whether our food would run out before we got money to buy more. Never true 03/20/2024 Within the past 12 months th e food we bought just didn't last and we didn't have money to get more. Never true 03/20/2024 Dependent Care Answer Date Recorded Do you need help finding or paying for care for your loved ones. For example, child's nurse or elderly care for an older adult? No 03/20/2024 Education Answer Date Recorded Do you think completing more education or training, like finishing a GED, going to college, or learning a trade, would be helpful for you? No 03/20/2024 Employment and Income Answer Date Recor ded During the last four weeks, have you been actively looking for work? No 03/20/2024 Living Situation Answer Date Recorded What is your living situation? 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 on file Not on file Not on file Obstetrics History Para Term AB IAB SAB Ectopic Multiple Livin g Live Births 2 2 2 2 2 Date Outcome GA Total Labor Labor/2nd/3rd Weight Sex Type Anes PTL Giana A1 A5 Name Clin 1999 Term F Vag-S pont Living Delivery Location:[place] 2002 Term F Vag-S pont Living Last Filed Vital Signs Vital Sign Reading Time Taken Comments Blood Pressure 155/89 03/27/2024 2:52 PM EST Pulse 89 03/27/2024 2:52 PM EST Temperature - - Respiratory Rate - - Oxygen Saturation - - Inhaled Oxygen Concentration - - Weight 84.8 kg (187 lb) 03/27/2024 2:52 PM EST Height - - Body Mass Index - - Plan of Treatment Health Maintenance Due Date Last Done Comments DTaP,Tdap,and Td Vaccines (1 - Tdap) 1990 Hepatitis B Vaccines (1 of 3 - 19+ 3-dose series) 1990 Pneumococcal Vaccine: 50+ Years (1 of 1 - PCV) 2021 Zoster Vaccines (1 of 2) 2021 Cholesterol Screening (Lipid Panel) 03/31/2022 Colorectal Cancer Screening: Colonoscopy 03/31/2022 HIV Screening 03/31/2022 Hepatitis C Screening 03/31/2022 Hypertension/CHF/CAD Annual BMP Blood Test 04/14/2022 COVID-19 Vaccine ( season) 2023 04/23/2021, 09/22/2020, 09/01/2020 Influenza Vaccine (#1) 2024 4, 03/07/2022, 01/30/2021, Additional history exists Depression Screening 03/20/2025 03/20/2024 Social Influencers of Health Screening 03/20/2025 03/20/2024 Breast Cancer Screening 04/18/2026 04/18/20 24, 03/16/2023, 03/10/2022, Additional history exists Cervical Cancer Screening: HPV 03/07/2027 03/07/2022 HIB Vaccines Aged Out No longer eligi ble based on patient's age to complete this topic HPV Vaccines Aged Out No longer eligi ble based on patient's age to complete this topic Hepatitis A Vaccines Aged Out No long er eligible based on patient's age to complete this topic IPV Vaccines Aged Out No longer eligi ble based on patient's age to complete this topic MMR Vaccines Aged Out No longer eligi ble based on patient's age to complete this topic Meningococcal ACWY Vaccine Aged Out N o longer eligible based on patient's age to complete this topic Meningococcal B Vaccine Aged Out No l onger eligible based on patient's age to complete this topic RSV Immunization Patients Under 20 months Aged Out No longer eligible based on patient's age to complete this topic Varicella Vaccines Aged Out No longer eligible based on patient's age to complete this topic Procedures Procedure Name Priority Date/Time Associated Diagnosis Comments MG MAMMO DIGITAL SCREENING W FERNANDO BILAT Routine 04/18/2024 9:36 AM EST Encounter for screening mammogram for breast cancer HM HPV Routine 03/07/2022 from Last 3 Months or Most Recently Relevant to Health Maintenance Results * MG Mammo Digital Screening w Fernando bilat (04/18/2024 9:36 AM EST) Anatomical Region Laterality Modality Breast Bilateral Mammography 04/20/2024 5:12 PM EST Impressions 04/20/2024 5:17 PM EST 1. No mammographic evidence of malignancy 2. Scattered fibroglandular tissue BI-RADS CATEGORY: 2 - BENIGN RECOMMENDATION: Screening bilateral mammogram is recommended in 1 year. Mammo Location: [facility], [address] [place] [address], [address], . -------- FINAL REPORT -------- Dictated By: Elza Bullock Dictated Date: 04/20/2024 17:12 ET Assigned Physician: Elza Bullock Reviewed and Electronically Signed By: Elza Bullock Signed Date: 04/20/2024 17:17 ET Workstation ID: [id number] Transcribed By: Self Edit Transcribed Date: 04/20/2024 17:12 ET Narrative 04/20/2024 5:17 PM EST A BILATERAL DIGITAL 3D SCREENING MAMMOGRAPHY HISTORY: Routine screening. No family history of breast cancer. COMPARISON: Multiple priors dating back to 02/26/2020 Technique: Bilateral full field digital mammography (3D) was performed using standard CC and MLO projections CAD was used to evaluate this mammogram. FINDINGS: Right: No suspicious masses, groups of microcalcification or areas of architectural distortion identified. Stable typically benign parenchymal asymmetries. Left: No suspicious masses, groups of microcalcification or areas of architectural distortion identified. Stable typically benign parenchymal asymmetries. BREAST DENSITY: B - There are scattered areas of fibroglandular density. Procedure Note Elza Bullock MD - 04/20/2024 A BILATERAL DIGITAL 3D SCREENING MAMMOGRAPHY HISTORY: Routine screening. No family history of breast cancer. COMPARISON: Multiple priors dating back to 02/26/2020 Technique: Bilateral full field digital mammography (3D) was performedusing standard CC and MLO projections CAD was used to evaluate this mammogram. FINDINGS: Right: No suspicious masses, groups of microcalcification or areas ofarchitectural distortion identified. Stable typically benign parenchymalasymmetries. Left: No suspicious masses, groups of microcalcification or areas ofarchitectural distortion identified. Stable typically benign parenchymalasymmetries. BREAST DENSITY: B - There are scattered areas of fibroglandular density. IMPRESSION: 1. No mammographic evidence of malignancy 2. Scattered fibroglandular tissue BI-RADS CATEGORY: 2 - BENIGN RECOMMENDATION: Screening bilateral mammogram is recommended in 1 year. Mammo Location: [facility], [address] [place] [address], [id number], . -------- FINAL REPORT -------- Dictated By: Elza Bullock Dictated Date: 04/20/2024 17:12 ET Assigned Physician: Elza Bullock Reviewed and Electronically Signed By: Elza Bullock Signed Date: 04/20/2024 17:17 ET Workstation ID: [id number] Transcribed By: Self Edit Transcribed Date: 04/20/2024 17:12 ET Marlee Medina CNM IMG BI PROCEDURES Final Res ult * Cervical Cancer Screening: HPV (03/07/2022) Cervical Cancer Screening: HPV negative,a bstracted Historical Provider HEALTH MAINTENANCE Final Result from Last 3 Months or Most Recently Relevant to Health Maintenance Insurance [facility] Care Teams Freight Team Associate Relationship Specialty Start Date End Date Desiree Maxwell MD [facility] , [address] [employer] [facility] D/B/A: Vandana Treadwellatidemi In Internal Medicine NI Ross PCP - General Internal Medicine 11/22/16
== END 2024-11-13 10:16 | disposition home or self-care (01) ==
LOC: HO.HGS 09:59
PROVIDERS: PCP Internal Medicine; Visit Provider Surgery
DX: D17.1 Benign lipomatous neoplasm of skin and subcutaneous tissue of trunk (principal)
CPT/HCPCS: 99204

== ENCOUNTER 2024-11-30 13:40 | Outpatient (REF) | payer OTHER, SELFPAY ==
[2024-11-30 13:43] VITALS: BP 176/85; PULSE 85; RESP 19; O2SAT 96
--- OUTSIDE RECORDS SUMMARY | 2024-11-30 13:50 | XMS_ITS | Clinical Summary ---
Author Organization [employer] Address [address] [place] [address] [address] [place] [address] Care Team Providers Care Surveillance Agent Name Role Phone Unavailable Primary Care Provider Unavailabl e Social History Tobacco Use Types Packs/Day Years Used Date Smoking Tobacco: Never Assessed Comments Unknown Sex and Gender Information Value Date Recorded Sex Assigned at Female 02/26/2022 10:22 AM EDT Legal Sex Female 10:22 AM EDT Gender Identity Not on file Sexual Orientation Not on file Plan of Treatment Health Maintenance Due Date Last Done Comments CT Colonography 1971 Colonoscopy 1971 Colorectal Cancer Screening 1971 Depression Screening 1971 FIT DNA/Cologuard 1971 FIT 1971 FOBT 1971 HIV Screening 1971 Lipid Panel 1971 SDOH Screening 1971 Sigmoidoscopy 1971 Disability Screening 1971 Alcohol/Substance Use Screening 1983 Tobacco Screening 1983 Hepatitis C Screening 1989 DTaP/Tdap/Td Vaccines (1 - Tdap) 1990 Hepatitis B Vaccines (1 of 3 - 19+ 3-dose series) 1990 Pap Smear 1992 Cervical Cancer Screening 2001 HPV/Cotest 2001 Mammogram 2011 Pneumococcal Vaccine: 50+ Ye ars (1 of 1 - PCV) 2021 Zoster Vaccines (1 of 2) 2021 COVID-19 Vaccine ( - 2023-2 5 season) 2023 Influenza Vaccine (#1) 2024 RSV Patients and Pa tients Aged 60 years or older (1 - 1-dose 75+ series) 2046 HIB Vaccines Aged Out No longer eligi [...] patient's age to complete this topic Meningococcal Vaccine Aged Out No marybel mahsa eligible based on patient's age to complete this topic RSV under 20 months Aged Out No longe r eligible based on patient's age to complete this topic Rotavirus Vaccines Aged Out No longer eligible based on patient's age to complete this topic Insurance , [address] [place] [address]
--- OUTSIDE RECORDS SUMMARY | 2024-11-30 13:50 | XMS_ITS | Clinical Summary ---
Author Organization [facility] Address [address] [place] [address] Phone Care Team Providers Care Optical Instrument Assembler Name Role Phone Desiree Maxwell MD Primary Care Provider [phone] Allergies No known active allergies Medications levonorgestreL [...] CERVICAL BIOPSY W/ LOOP ELECTRODE EXCISION PROCEDURE: MS CONIZATION CERVIX W/WO D&C RPR ELTRD EXC; COMMENT: historical KNEE ARTHROSCOPY Right PROCEDURE: MS ARTHROSCOPY AID TX SPINE&/FX KNEE W/O FIXJ [...] care for your loved ones. For example, child care supervisor or elderly care for an older adult? [...] 1999 Term F Vag-S pont Living Delivery Location:[place] 2002 Term F Vag-S pont Living Last [...] Vaccine ( season) 2023 04/23/2021, 09/22/2020, 09/01/2020 Depression Screening 04/29/2024 03/20/2024 Influenza Vaccine (#1) 2024 , 03/07/2022, 01/30/2021, Additional history exists Social Influencers of Health Screening 03/20/2025 03/20/2024 [...] is recommended in 1 year. Mammo Location: [facility], [address] [place] [address], [address], . -------- FINAL REPORT -------- Dictated By: Elza Bullock Dictated Date: 04/20/2024 17:12 ET Assigned Physician: Elza Bullock Reviewed and Electronically Signed By: Elza Bullock Signed Date: 04/20/2024 17:17 ET Workstation ID: [id number] Transcribed By: Self Edit Transcribed Date: 04/20/2024 [...] is recommended in 1 year. Mammo Location: [facility], [address] [place] [address], [address], . -------- FINAL REPORT -------- Dictated By: Elza Bullock Dictated Date: 04/20/2024 17:12 ET Assigned Physician: Elza Bullock Reviewed and Electronically Signed By: Elza Bullock Signed Date: 04/20/2024 17:17 ET Workstation ID: [id number] Transcribed By: Self Edit Transcribed Date: 04/20/2024 17:12 ET Marlee Medina CNM IMG BI PROCEDURES Final Res ult * Cervical Cancer Screening: HPV (03/07/2022) Cervical Cancer Screening: HPV negative,a bstracted Historical Provider HEALTH MAINTENANCE Final Result from Last 3 Months or Most Recently Relevant to Health Maintenance Insurance [facility] Care Teams Optical Instrument Assembler Relationship Specialty Start Date End Date Desiree Maxwell MD 2 [facility] , [address] [facility] Physician Associ D/B/A: Vandana Treadwellatiedmi In Internal Medicine NI Ross PCP - General Internal Medicine 11/22/16
--- NOTE | 2024-11-30 14:35 | W.PM.OPN ---
Operative Note Operative Note Date of Service: 11/30/24 Narrative: Preoperative diagnosis: Lipoma right upper back Postoperative diagnosis: Same Procedure: Excision of lipoma right upper back Surgeon: Ralph Finney MD Drying Tunnel Operator: Kelley Jimenez MS-3 Anesthesia: Local lidocaine 1% with epinephrine Indications for procedure: Painful lipoma right upper back below the scapula Operative findings: 8 cm lipoma Specimen: Lipoma right upper back Estimated blood loss: Less than 2 mL Complications: None Procedure details: Patient was brought to the minor surgery suite and placed in a prone position. The site of surgery was confirmed by the patient in the right upper back below the scapula. After assuring informed consent the skin was prepped with Betadine and draped in a sterile fashion. Local anesthesia was infiltrated transversely over the lipoma. Incision was then made with a 15 blade and carried out through subcutaneous tissue up to the lipoma. The lipoma was bluntly and sharply dissected from the surrounding subcutaneous tissue. This was removed and sent to pathology for further examination. Palpation revealed several other lipomas slightly deeper within the subcutaneous tissue. These were further dissected using sharp and blunt dissection and excised. Both additional lipomas were added to the special when for pathology. Hemostasis was assured using light pressure. Dermis was then reapproximated using interrupted 3-0 Polysorb sutures. Skin was closed using a running subcuticular 4-0 Polysorb suture. Steri-Strips, 2 x 2 gauze and Tegaderm were then applied. The patient tolerated the procedure well. She was discharged to home in stable condition.
== END 2024-11-30 13:41 | disposition home or self-care (01) ==
LOC: HO.MS 13:40
PROVIDERS: PCP Internal Medicine; Visit Provider Surgery
PROC: (CPT 11406; principal; 2024-11-30 14:00)
DX: D17.1 Benign lipomatous neoplasm of skin and subcutaneous tissue of trunk (principal)
CPT/HCPCS: 11406; 88304; J2004

== ENCOUNTER → 2024-11-30 13:40 | Outpatient (BNV) | payer OTHER, SELFPAY | PROVIDERS: PCP Internal Medicine; Visit Provider Surgery | DX: D17.1 Benign lipomatous neoplasm of skin and subcutaneous tissue of trunk (principal) | CPT/HCPCS: 21931 ==

== ENCOUNTER 2024-12-08 10:20 | Outpatient (AMB) | payer OTHER, SELFPAY ==
--- NOTE | 2024-12-08 10:24 | MHC.OFFVIS ---
Vital Signs 12/08/24 10:29 Height 5 ft 5 in Weight 187 lb BMI 31.1 BP 152/86 H Blood Pressure Location Lt brachial Position Sitting Pulse 65 Intake Visit Reasons: s/p exc lipoma right upper back Intake Note: Patient is seen in office for post op assessment post excision of lipoma right upper back. Pt c/o: denies any concerns at the time of visit surgery:11/30/24 Corporate Communications Intern Required: No Accompanied by: Self / Same As Patient Allergies No Known Allergies Allergy (Verified 12/08/24 10:24) HPI Comments Details: Patient returns 1 week following excision of a lipoma of the right mid back. She tolerated the procedure well and denies any ongoing problems. Pathology confirmed a lipoma. [facility] Medical History (Updated 12/08/24 @ 10:35 by Ralph Finney MD) Obesity (BMI 35.0-39.9 without comorbidity) Hypovitaminosis D Essential hypertension Surgical History (Updated 12/08/24 @ 09:31 by MEJIA Castillo) Hx of excision of mass (11/30/24) History of arthroscopy of right knee H/O LEEP Family History Father Prostate cancer Mother Hypertension Stroke Lung cancer Myocardial infarct Family/Other FH: mental illness Maternal Grandfather Myocardial infarct Daughter In good health Daughter In good health Brother No problems noted. Brother No problems noted. Sister No problems noted. Sister No problems noted. Sister No problems noted. Social History Housing: House Alcohol intake: current Alcohol intake frequency: a few times a week Alcohol type: beer and hard liquor Patient Tobacco Use Status: Former Tobacco user Tobacco use type: Cigarette e-Cigarette/Vaping Use: Never Used Second Hand Smoke Exposure: No service: No Current occupational status: unemployed Current occupational exposures/hazards: No Cognitive needs: No Hearing needs: No Vision needs: No Physical Exam Vital Signs: Last Vital Signs Pulse 65 12/08/24 10:29 BP 152/86 H 12/08/24 10:29 BMI result Body Mass Index 31.1 Const General: comfortable Nutritional Appearance: well nourished Orientation/consciousness: patient oriented x3 Back/Spine/Pelvis Other: Well-healed incision in the upper right midback with no hematoma or seroma appreciated. Back/spine/pelvis image:  1. Incision right upper back Neuro General: patient oriented x3 Assessment & Plan Assessment & Plan (1) Lipoma: Code(s): D17.9 - Benign lipomatous neoplasm, unspecified Category: Medical Qualifiers: Lipoma location: trunk Qualified Code(s): D17.1 - Benign lipomatous neoplasm of skin and subcutaneous tissue of trunk Plan Patient returns 1 week following excision of a lipoma of the right upper mid back. She tolerated the procedure well and her wounds are healing nicely. She should follow up as needed. Coding Level of Care Code Global (77077) Diagnoses Lipoma of torso D17.1 Lipoma location: trunk
[2024-12-08 10:29] VITALS: BP 152/86; PULSE 65; BMI 31.1
--- OUTSIDE RECORDS SUMMARY | 2024-12-08 11:22 | XMS_ITS | Clinical Summary ---
Author Organization [employer] Address [address] [place] [address] [address] [place] [address] Care Team Providers Care Telephone Betting Clerk Name Role Phone Unavailable Primary Care Provider [...] complete this topic Insurance , [address] [place] [address]
--- OUTSIDE RECORDS SUMMARY | 2024-12-08 11:22 | XMS_ITS | Clinical Summary ---
Author Organization [facility] Address [address] [place] [address] Phone Care Team Providers Care Pension Agent Name Role Phone Desiree Maxwell MD Primary Care Provider [phone] Allergies No known active allergies Medications levonorgestreL [...] CERVICAL BIOPSY W/ LOOP ELECTRODE EXCISION PROCEDURE: HI CONIZATION CERVIX W/WO D&C RPR ELTRD EXC; COMMENT: historical KNEE ARTHROSCOPY Right PROCEDURE: [place] ARTHROSCOPY AID TX SPINE&/FX KNEE W/O FIXJ [...] care for your loved ones. For example, childhood teacher or elderly care for an older adult? [...] 1999 Term F Vag-S pont Living Delivery Location:[place] 2002 Term F Vag-S pont Living Last [...] is recommended in 1 year. Mammo Location: [facility], [address] [place] [address], [phone], . -------- FINAL REPORT -------- Dictated By: Elza Bullock Dictated Date: 04/20/2024 17:12 ET Assigned Physician: Elza Bullock Reviewed and Electronically Signed By: Elza Bullock Signed Date: 04/20/2024 17:17 ET Workstation ID: [id number] Transcribed By: Self Edit Transcribed Date: 04/20/2024 [...] is recommended in 1 year. Mammo Location: [facility], [address] [place] [address], [address], . -------- FINAL REPORT -------- Dictated By: Elza Bullock Dictated Date: 04/20/2024 17:12 ET Assigned Physician: Elza Bullock Reviewed and Electronically Signed By: Elza Bullock Signed Date: 04/20/2024 17:17 ET Workstation ID: [id number] Transcribed By: Self Edit Transcribed Date: 04/20/2024 17:12 ET Marlee Medina CNM IMG BI PROCEDURES Final Res ult * Cervical Cancer Screening: HPV (03/07/2022) Cervical Cancer Screening: HPV negative,a bstracted Historical Provider HEALTH MAINTENANCE Final Result from Last 3 Months or Most Recently Relevant to Health Maintenance Insurance [facility] Care Teams Pension Agent Relationship Specialty Start Date End Date Desiree Maxwell MD 2 [facility] , [address] [facility] D/B/A: Vandana Treadwellatidemi In Internal Medicine NI Ross PCP - General Internal Medicine 11/22/16
== END 2024-12-08 10:59 | disposition home or self-care (01) ==
LOC: HO.HGS 10:21
PROVIDERS: PCP Internal Medicine; Visit Provider Surgery
DX: D17.1 Benign lipomatous neoplasm of skin and subcutaneous tissue of trunk (principal)
CPT/HCPCS: 99024